=== PATIENT | male | born 1965 | race Caucasian/White ===

== ENCOUNTER 2016-04-08 05:03 | Emergency (ER) | payer OTHER ==
--- NOTE | 2016-04-08 05:23 | ERNOTE ---
Abdominal HPI - Narrative Date of Service: 04/08/16 - General Chief Complaint: Abdominal Pain Time Seen by Provider: 04/08/16 05:11 Source: patient - - Immun/Allergies/Home Medications Allergies/Adverse Reactions: Allergies strawberry [[place]] Allergy (Severe, Verified 09/06/13 11:56) Swelling of Throat Home Medications: HOME MEDICATIONS Cyclobenzaprine HCl [Flexeril] 2 tab PO HS #60 tablet 09/07/13 [Last Taken Unknown] Naproxen 500 mg PO BID PRN #60 tablet 09/07/13 [Last Taken Unknown] Naproxen [Naprosyn] 500 mg PO BID PRN #20 tablet 04/08/16 [Last Taken Unknown] Tamsulosin HCl [Flomax] 0.4 mg PO DAILY@1800 PRN #10 cap 04/08/16 [Last Taken Unknown] - History of Present Illness Narrative: Two weeks ago Conner was seen at [facility] and diagnosed with a left kidney stone. He has had persistent pain since then, but it spiked tonight 30 minutes prior to being seen in the ED. The pain pattern is exactly as it was when he was first diagnosed. Denies any fevers, chill, vomiting or dysuria. Conner has not taken any pain medications prior to coming to the ED. Reportedly the stone was 8 mm. He has not followed up with urology as yet. Timing: constant Quality: severe Activities at Onset: none Modifying Factors - (Improves): Present: other - nothing Modifying Factors - (Worsens): Present: other - nothing Associated Symptoms: Present: denies symptoms Prior Abdominal Problems: Present: similar symptoms Prior Treatment: Present: recently seen Review of Systems - Review of Systems Constitutional: Present: no symptoms reported EYE: Present: no symptoms reported ENT: Present: no symptoms reported Respiratory: Present: no symptoms reported Cardiology: Present: no symptoms reported Gastrointestinal/Abdominal: Present: no symptoms reported Genitourinary: Present: no symptoms reported Musculoskeletal: Present: no symptoms reported Skin: Present: no symptoms reported Neurological: Present: no symptoms reported Endocrine: Present: no symptoms reported Hematologic/Lymphatic: Present: no symptoms reported - Family History Grandmother-Paternal Family History - Medical: Family History - Cardiac/Respiratory: No pertinent hx Family History - Cancer: No pertinent family hx Physical Exam - Physical Exam General Appearance: Present: mild distress Eye Exam: Normal inspection: bilateral Ears, Nose, Throat: Present: normal ENT inspection Neck: Present: normal inspection Respiratory: Present: no respiratory distress Cardiovascular/Chest: Present: regular rate, rhythm Gastrointestinal/Abdominal: Present: nontender, nondistended, soft Back Exam: Present: normal inspection Extremity Exam: Present: normal inspection, normal range of motion Neurological Exam: Present: alert, oriented, general accountant II-XII nml as tested Skin Exam: Present: normal color ED Progress - Results and Orders Patient's Lab Results:: I have reviewed the patient's lab results. - Vital Signs Patient's Vital Signs:: I have reviewed the patient's vital signs. - Progress/Reassessment Chief Complaint: Abdominal Pain Progress:: Improved Departure - Departure Clinical Impression: Kidney stone on left side Disposition: Home self-care Condition: Good Instructions: Kidney Stones, [id number] Print Language: [place]raini Additional Instructions: Call urology this morning. Referrals: Alli Stokes MD [Associate] - Prescriptions: Naproxen [Naprosyn] 500 mg PO BID PRN #20 tablet PRN Reason: Pain Tamsulosin HCl [Flomax] 0.4 mg PO DAILY@1800 PRN #10 cap PRN Reason: kidney pain
[2016-04-08] MEDS ORDERED: KETOROLAC TROMETHAMINE 30 MG/ML VIAL IM ONE (05:41)
[2016-04-08] MEDS ORDERED: ACETAMINOPHEN 500 MG TABLET PO ONE (05:47)
[2016-04-08] MEDS ORDERED: KETOROLAC TROMETHAMINE 30 MG/ML VIAL ONE (05:48)
[2016-04-08 05:58] LABS: Urine Bilirubin Negative (NEGATIVE); Urine Ketone Negative (NEGATIVE); Urine Nitrite Negative (NEGATIVE); Urine Protein Negative (NEGATIVE); Urine Urobilinogen Normal (NORMAL)
[2016-04-08 06:06] LABS: Urine Amorphous Sediment TRACE (NONE-FEW); Urine Appearance Clear; Urine Bacteria None Seen; Urine Blood 10 /ul (NEGATIVE); Urine Color Yellow; Urine RBC 0-5 /hpf (0-5); Urine WBC None Seen /hpf (0-5)
[2016-04-08 06:55] LABS: Anion Gap 14.3 mmol/L (6.8-13.8); BUN/Creatinine Ratio 24.7 (9.0-21.6); Calcium * 8.2 mg/dL (7.9-10.9); Carbon Dioxide 20.4 mmol/L (24-32.6); Estimated Creat Clear 119.5; Potassium 4.7 mmol/L (3.4-4.6)
[2016-04-08 07:42] VITALS: BP 152/84
== END 2016-04-08 07:43 | disposition home or self-care (01) ==
LOC: ER 05:03
DX: N20.0 Calculus of kidney (principal)